=== PATIENT | female | born 1930 | race Caucasian/White ===

== ENCOUNTER 2018-01-18 09:30 | Inpatient (IN) | payer MEDICARE, OTHER ==
[~2018-01-18] VITALS: Ht 154.9 cm; Wt 75.8 kg
[2018-03-08] MEDS ORDERED: TOLT4CAP14 PO (11:12)
[2018-03-08] MEDS ORDERED: CELE-193 PO (11:12)
[2018-03-08] MEDS ORDERED: ESOM40CA30 PO (11:12)
[2018-03-08] MEDS ORDERED: HYDR-4069 PO (11:12)
[2018-03-08] MEDS ORDERED: FELO10TA3 PO (11:12)
[2018-03-08] MEDS ORDERED: LEVO75TA PO (11:12)
[2018-03-08] MEDS ORDERED: ESTR0.6261 PO (11:12)
[2018-03-08] MEDS ORDERED: SERT50TA PO (11:12)
[2018-03-08] MEDS ORDERED: MAGN500C16 PO (11:12)
[2018-03-08] MEDS ORDERED: MUPI22OI30 TP (11:12)
[2018-03-08] MEDS ORDERED: AMLO2.5T2 PO (11:12)
[2018-03-08 11:44] LABS: BASOPHILS % (AUTO) 0.5 % (0-1); EOSINOPHILS # (AUTO) 0.1 X10'3 (0-0.9); EOSINOPHILS % (AUTO) 1.6 % (0-6); LYMPHOCYTES # (AUTO) 2.6 X10'3 (1.1-4.8); LYMPHOCYTES % (AUTO) 31.2 % (21-51); MEAN CORPUSCULAR HEMOGLOBIN 30.1 PG (27.0-31.0); MEAN CORPUSCULAR HGB CONC 33.1 % (33.0-36.5); MEAN CORPUSCULAR VOLUME 90.9 FL (78-98); MEAN PLATELET VOLUME 10.6 FL (7.4-10.4); MONOCYTES # (AUTO) 0.5 X10'3 (0-0.9); MONOCYTES % (AUTO) 5.8 % (2-12); NEUTROPHILS # (AUTO) 5.1 X10'3 (1.8-7.7); NEUTROPHILS % (AUTO) 60.9 % (42-75); PRE OP HEMATOCRIT 43.5 % (35.0-45.0); PRE OP HEMOGLOBIN 14.4 g/dL (12.0-16.0); PRE OP PLATELET COUNT 275 X10'3 (140-440); RED BLOOD COUNT 4.79 X10'6 (4.20-5.60); RED CELL DISTRIBUTION WIDTH 14.6 % (11.5-14.5)
[2018-03-08 11:55] LABS: CLARITY,URINE CLOUDY (Clear); COLOR,URINE YELLOW (Yellow); GLUCOSE, URINE NEGATIVE (Neg); KETONES,URINE NEGATIVE (Neg); LEUKOCYTE ESTERASE ,URINE LARGE (Neg); NITRITES, URINE NEGATIVE (Neg); OCCULT BLOOD,URINE NEGATIVE (Neg); PH,URINE 5.5 (4.8-8.0); PROTEIN,URINE NEGATIVE (Neg); UROBILINOGEN,URINE 0.2 E.U/dL (0.2-1.0)
[2018-03-08 11:58] LABS: PRE OP PROTIME 9.9 SECONDS (9.0-12.0)
[2018-03-08 12:02] LABS: UA COLLECTION TYPE CLN CATCH MIDSTREAM
[2018-03-08 12:03] LABS: MUCUS STRANDS FEW /LPF (Neg); SQUAMOUS EPITHELIAL CELL,UR MANY /LPF (FEW); WBC,URINE TNTC /HPF (0-4)
[2018-03-08 12:06] LABS: BACTERIA,URINE 2+ /HPF (Neg); RBC,URINE 0-2 /HPF (0-2)
[2018-03-08 12:12] LABS: ALBUMIN 3.4 G/DL (3.4-5.0); ALBUMIN/GLOBULIN RATIO 0.8 (1.1-1.5); ALKALINE PHOSPHATASE 93 IU/L (46-116); BLOOD UREA NITROGEN 24 MG/DL (7-18); BUN/CREATININE RATIO 17.6 (6.6-38.0); CALCIUM 9.2 MG/DL (8.5-10.1); CHLORIDE 101 MMOL/L (99-107); CREATININE 1.36 MG/DL (0.40-0.90); PRE OP ALT 18 U/L (30-65); PRE OP ANION GAP 14 (8-16); PRE OP AST 17 U/L (10-37); PRE OP BILIRUB, TOTAL 0.2 MG/DL (0.0-1.0); PRE OP GLUCOSE 142 MG/DL (70-104); PRE OP POTASSIUM 3.9 MMOL/L (3.4-5.1); PRE OP SODIUM 138 MMOL/L (135-145); TOTAL CARBON DIOXIDE 23.4 MMOL/L (24-32); TOTAL PROTEIN 7.5 G/DL (6.4-8.2); eGFR 37 ML/MIN
[2018-03-15] VITALS (18 sets, daily range): BP systolic 120–174; BP diastolic 52–83
[2018-03-15] MEDS ORDERED: ringers solution, lacted 1,000 ML IV SCH ×2 (05:00→07:59)
[2018-03-15] MEDS ORDERED: famotidine 20mg tablet PO ONE (05:30)
[2018-03-15] MEDS ORDERED: cefazolin/dext.iso 2gm/100 ML IV ONE (05:30)
[2018-03-15] MEDS ORDERED: oxyCODONE SR 10mg (sust. release) tab PO ONE (05:30)
[2018-03-15] MEDS ORDERED: acetaminophen 325mg tablet PO ONE (05:30)
[2018-03-15] MEDS ORDERED: celeCOXIB 100mg capsule PO ONE (05:30)
[2018-03-15] MEDS ORDERED: tranexamic acid inj. 1,000 MG in normal saline 100 ML IV ONE (05:30)
[2018-03-15] MEDS ORDERED: metoclopramide 5 mg/ml inj IV ONE (05:30)
[2018-03-15] MEDS ORDERED: gabapentin 300mg capsule PO ONE (05:30)
[2018-03-15] MEDS ORDERED: VANCOMYCIN INJ 1000 MG in NORMAL SALINE 250ml IV.SOLN IV ONE (05:30)
[2018-03-15] MEDS ORDERED: LIDOcaine 1% (10mg/ml) 2ml vial ONE (05:40)
[2018-03-15] MEDS ORDERED: acetaminophen 325mg tablet PO PRN (06:20)
[2018-03-15] MEDS ORDERED: bisacodyl 10mg suppository rectal RC PRN (06:20)
[2018-03-15] MEDS ORDERED: HYDROmorphone 1 mg/ml syringe IV PRN (06:20)
[2018-03-15] MEDS ORDERED: mupirocin 2% ointment 22GM TP PRN (06:20)
[2018-03-15] MEDS ORDERED: HYDROcodone/acetaminophen 10/325mg tab PO PRN (06:20)
[2018-03-15] MEDS ORDERED: ondansetron/PF 4mg/2ml inj IV PRN ×2 (06:20→08:00)
[2018-03-15] MEDS ORDERED: HYDROmorphone inj. 0.5 MG/0.5 ML DISP.SYRIN IV PRN ×2 (06:20→08:00)
[2018-03-15] MEDS ORDERED: magnesium hydroxide 30ml (MOM) UD suspension PO PRN (06:20)
[2018-03-15] MEDS ORDERED: diphenhydrAMINE 25mg capsule PO PRN ×2 (06:20)
[2018-03-15] MEDS ORDERED: diphenhydrAMINE 50 mg/ml inj ONE (07:00)
[2018-03-15] MEDS ORDERED: tetracaine 1% (10mg/ml) pres. free inj. ONE (07:01)
[2018-03-15] MEDS ORDERED: fentaNYL/PF 50MCG/1 ML 2ML syringe ONE (07:03)
[2018-03-15] MEDS ORDERED: LIDOcaine 1%/PF 5ML 10 MG/ML VIAL ONE (07:15)
[2018-03-15] MEDS ORDERED: propofol inj 20 ML IV ONE ×2 (07:15→08:51)
[2018-03-15] MEDS ORDERED: midazolam 2 mg/2 ml injection ONE (07:15)
[2018-03-15] MEDS ORDERED: ROPIVAcaine 0.5% (5mg/ml) 30ml vial ONE (07:23)
[2018-03-15] MEDS ORDERED: dexamethasone sod phosphate 4mg/ml inj. ONE (07:27)
[2018-03-15] MEDS ORDERED: ROPIVACAINE HCL/PF PAIN PUMP 400 ML IJ SCH (07:59)
[2018-03-15] MEDS ORDERED: morphine 4 MG/ML inj SYRINge IV PRN (08:00)
[2018-03-15] MEDS ORDERED: vancomycin 1,000mg inj ONE (08:27)
--- NOTE | 2018-03-15 09:30 | NUR ---
Received from OR via bed, accompanied by Anesthesiologist. Report received. Initial physical assessment done and recorded.
--- NOTE | 2018-03-15 10:20 | NUR ---
received report from fina ocampo in recovery
--- NOTE | 2018-03-15 10:25 | NUR ---
Discharge criteria met, report to receiving floor. Transferred to room in stable condition. ON Q pump in place prior to transfer.
--- NOTE | 2018-03-15 10:30 | NUR ---
PT ARRIVED ON FLOOR IN ORTHO BED
[2018-03-15] MEDS: HYDROcodone/acetaminophen 10/325mg tab PO PRN (11:43)
[2018-03-15] MEDS: gabapentin 300mg capsule PO SCH ×3 (12:14→20:03)
[2018-03-15] MEDS: potassium cl 20mEq in 1/2 NS 1,000 ML IV SCH ×3 (12:15→23:49)
[2018-03-15] MEDS: amLODIPine 2.5mg tablet PO SCH (13:00)
[2018-03-15] MEDS ORDERED: tranexamic acid inj. 750 MG in normal saline 100ml IV soln 100 ML IV ONE (14:00)
[2018-03-15] MEDS: ceFAZolin 1GM/D5W- ADD-VANTAGE 50 ML IV SCH ×2 (15:13→23:48)
[2018-03-15] MEDS ORDERED: vancomycin/NS 1 GM ADD-VANTAGE 250 ML IV ONE (17:30)
--- NOTE | 2018-03-15 18:05 | NUR ---
GAVE REPORT TO PADMINI Ya RN
--- NOTE | 2018-03-15 18:05 | NUR ---
Received report from Kimberley PENA, assumed care of patient.
[2018-03-15] MEDS: ascorbic acid 500mg tablet PO SCH (20:03)
[2018-03-15] MEDS: sennosides 8.6mg tablet PO SCH (20:03)
[2018-03-15] MEDS: sertraline 50mg tablet PO SCH (20:03)
[2018-03-16 02:00] VITALS: BP 174/83
[2018-03-16] MEDS: HYDROcodone/acetaminophen 10/325mg tab PO PRN ×3 (04:52→20:06)
[2018-03-16 06:00] VITALS: BP 175/74
[2018-03-16 06:08] LABS: ANION GAP 11 (8-16); CHLORIDE 106 MMOL/L (99-107); POTASSIUM 4.1 MMOL/L (3.5-5.1); SODIUM 137 MMOL/L (135-145); TOTAL CARBON DIOXIDE 20.2 MMOL/L (24-32)
[2018-03-16 06:09] LABS: BASOPHILS % (AUTO) 0.3 % (0-1); EOSINOPHILS % (AUTO) 0 % (0-6); HEMATOCRIT 32.8 % (35.0-45.0); HEMOGLOBIN 11.1 g/dl (12.0-16.0); LYMPHOCYTES # (AUTO) 1.6 X10'3 (1.1-4.8); LYMPHOCYTES % (AUTO) 14.8 % (21-51); MEAN CORPUSCULAR HEMOGLOBIN 30.7 PG (27.0-31.0); MEAN CORPUSCULAR HGB CONC 33.9 % (33.0-36.5); MEAN CORPUSCULAR VOLUME 90.7 FL (78-98); MEAN PLATELET VOLUME 9.9 FL (7.4-10.4); MONOCYTES % (AUTO) 9.5 % (2-12); NEUTROPHILS % (AUTO) 75.4 % (42-75); PLATELET COUNT 196 X10'3 (140-440); RED BLOOD COUNT 3.62 X10'6 (4.20-5.60); RED CELL DISTRIBUTION WIDTH 14.5 % (11.5-14.5); WHITE BLOOD COUNT 10.6 X10'3 (4.5-11.0)
[2018-03-16] MEDS ORDERED: pantoprazole 40mg Tablet.DR PO SCH (07:30)
[2018-03-16] MEDS ORDERED: ROPIVAcaine inj 250 MG, CloNIDine/PF inj 80 MCG, epiNEPHrine inj 0.5 MG in normal salin... IU ONE (07:40)
[2018-03-16] MEDS: estrogen, conjugated 0.625mg tablet PO SCH (08:00)
[2018-03-16] MEDS: magnesium oxide 400mg tablet PO SCH (08:16)
[2018-03-16] MEDS: multivitamins, therapeutics tablet PO SCH (08:16)
[2018-03-16] MEDS: amLODIPine 2.5mg tablet PO SCH (08:16)
[2018-03-16] MEDS: gabapentin 300mg capsule PO SCH ×3 (08:16→20:04)
[2018-03-16] MEDS: celeCOXIB 100mg capsule PO SCH (08:16)
[2018-03-16] MEDS: levoTHYROXINE 75mcg tablet PO SCH (08:16)
[2018-03-16] MEDS: ascorbic acid 500mg tablet PO SCH ×2 (08:17→20:04)
[2018-03-16] MEDS: amLODIPine 5mg tablet PO SCH (08:17)
[2018-03-16] MEDS: oxybutynin 5mg tablet PO SCH ×4 (08:17→20:04)
[2018-03-16] MEDS: potassium cl 20mEq in 1/2 NS 1,000 ML IV SCH ×3 (08:17→22:13)
[2018-03-16] MEDS: aspirin 325mg tablet PO SCH (08:17)
[2018-03-16] MEDS: hydrALAZINE 25 MG tablet PO SCH (08:17)
--- NOTE | 2018-03-16 08:37 | NUR ---
Report given to Iwona PENA.
--- NOTE | 2018-03-16 08:47 | NUR ---
Received report from stefano PENA
--- NOTE | 2018-03-16 13:29 | NUR ---
Joint replacement consult: Pt seen by [facility] for written/verbal high protein ed. [facility] reviewed high protein needs for wound healing, immune strength, high protein foods, and protein supplementation options. RD contact information provided in case of further questions. Agrees to cottage cheese w/ fruit for breakfast and strawberry tajik yogurt BIDLD; PHO[facility] d/w dietary. Addendum: 03/16/18 at [address] Amended: Links added.
[2018-03-16 18:00] VITALS: BP 165/67
--- NOTE | 2018-03-16 18:10 | NUR ---
RECEIVED REPORT FROM ALMA PENA.
[2018-03-16] MEDS: sennosides 8.6mg tablet PO SCH (20:04)
[2018-03-16] MEDS: sertraline 50mg tablet PO SCH (20:04)
[2018-03-16 22:00] VITALS: BP 153/63
[2018-03-17] MEDS: HYDROcodone/acetaminophen 10/325mg tab PO PRN (01:24)
--- NOTE | 2018-03-17 06:05 | NUR ---
Patient in room ORTHO 4021. I have received report from Mel Ya RN and had the opportunity to ask questions and assume patient care.
--- NOTE | 2018-03-17 06:19 | NUR ---
Report given to Christal PENA.
[2018-03-17 06:47] VITALS: BP 146/59
[2018-03-17 07:19] LABS: BASOPHILS % (AUTO) 0.4 % (0-1); EOSINOPHILS # (AUTO) 0.2 X10'3 (0-0.9); EOSINOPHILS % (AUTO) 1.8 % (0-6); HEMATOCRIT 31.6 % (35.0-45.0); HEMOGLOBIN 10.5 g/dl (12.0-16.0); LYMPHOCYTES # (AUTO) 2.7 X10'3 (1.1-4.8); LYMPHOCYTES % (AUTO) 24.2 % (21-51); MEAN CORPUSCULAR HEMOGLOBIN 30.4 PG (27.0-31.0); MEAN CORPUSCULAR HGB CONC 33.3 % (33.0-36.5); MEAN CORPUSCULAR VOLUME 91.4 FL (78-98); MEAN PLATELET VOLUME 9.7 FL (7.4-10.4); MONOCYTES % (AUTO) 9.3 % (2-12); NEUTROPHILS # (AUTO) 7.1 X10'3 (1.8-7.7); NEUTROPHILS % (AUTO) 64.3 % (42-75); PLATELET COUNT 185 X10'3 (140-440); RED BLOOD COUNT 3.46 X10'6 (4.20-5.60); RED CELL DISTRIBUTION WIDTH 14.8 % (11.5-14.5)
[2018-03-17] MEDS ORDERED: ASPI-1 PO (07:53)
[2018-03-17] MEDS: amLODIPine 5mg tablet PO SCH (08:00)
[2018-03-17] MEDS: estrogen, conjugated 0.625mg tablet PO SCH (08:00)
[2018-03-17] MEDS: gabapentin 300mg capsule PO SCH (08:45)
[2018-03-17] MEDS: ascorbic acid 500mg tablet PO SCH (08:45)
[2018-03-17] MEDS: levoTHYROXINE 75mcg tablet PO SCH (08:45)
[2018-03-17] MEDS: magnesium oxide 400mg tablet PO SCH (08:45)
[2018-03-17] MEDS: amLODIPine 2.5mg tablet PO SCH (08:45)
[2018-03-17] MEDS: aspirin 325mg tablet PO SCH (08:45)
[2018-03-17] MEDS: oxybutynin 5mg tablet PO SCH (08:45)
[2018-03-17] MEDS: hydrALAZINE 25 MG tablet PO SCH (08:45)
[2018-03-17] MEDS: multivitamins, therapeutics tablet PO SCH (08:45)
[2018-03-17] MEDS: celeCOXIB 100mg capsule PO SCH (08:45)
--- NOTE | 2018-03-17 12:09 | NUR ---
Patient stable for discharge home today with . All instructions given to patient, and son. all questions answered. Patient discharged at 10:45
== END 2018-03-17 10:45 | disposition home or self-care (01) | DRG 470 ==
LOC: PAS IN 03-15 05:20 → EDSTATUS 03-15 07:30 → ORTHO 4S 03-15 10:30
PROVIDERS: ADMIT Orthopaedic Surgery; ATTEND Orthopaedic Surgery
PROC: 3E0T3BZ Introduction of Anesthetic Agent into Peripheral Nerves and Plexi, Percutaneous Approach (ICD-10-PCS; 2018-03-15)
PROC: 0SRC0J9 Replacement of Right Knee Joint with Synthetic Substitute, Cemented, Open Approach (ICD-10-PCS; principal; 2018-03-15 07:00)
DX: M17.11 Unilateral primary osteoarthritis, right knee (principal); D62 Acute posthemorrhagic anemia; E03.9 Hypothyroidism, unspecified; I10 Essential (primary) hypertension; K21.9 Gastro-esophageal reflux disease without esophagitis; F41.9 Anxiety disorder, unspecified; N32.81 Overactive bladder; F32.9 Major depressive disorder, single episode, unspecified; Z96.652 Presence of left artificial knee joint; Z90.710 Acquired absence of both cervix and uterus; Z88.6 Allergy status to analgesic agent; Z79.899 Other long term (current) drug therapy; Z79.890 Hormone replacement therapy; Z79.82 Long term (current) use of aspirin
CPT/HCPCS: 36415; 71046; 73560; 80051; 80053; 81001; 84443; 85025; 85610; 85730; 86885; 86900; 86901; 87070; 93005; 97110; 97116; 97162; 97530; A6455; A7000; C1713; C1758; C1776; G0378; J0690; J1100; J1170; J1200; J2001; J2250; J2704; J2765; J2795; J3010; J3370; J3490; J7030; J7120